=== PATIENT | female | born 1975 | race Caucasian/White ===

== ENCOUNTER 2022-05-07 11:09 | Emergency (ER) | payer OTHER ==
[~2022-05-07] VITALS: Ht 154.9 cm; Wt 64.4 kg
[2022-05-07] MEDS ORDERED: COZAAR25 MG PO (11:20)
[2022-05-07] MEDS ORDERED: ALDACTONE25 MG PO (11:20)
[2022-05-07] MEDS ORDERED: KETO10TA2 PO (13:23)
[2022-05-07] MEDS ORDERED: NORFLEX100MG PO (13:23)
== END 2022-05-07 14:28 | disposition home or self-care (01) ==
LOC: ER 11:09
DX: M75.30 Calcific tendinitis of unspecified shoulder (principal)